=== PATIENT | male | born 1960 | race Caucasian/White ===

== ENCOUNTER → 2017-12-10 | Outpatient (CLI) | payer MEDICARE, OTHER | LOC: COL.RAD 11:33 | DX: M86.171 Other acute osteomyelitis, right ankle and foot (principal); L97.519 Non-pressure chronic ulcer of other part of right foot with unspecified severity | CPT/HCPCS: A9585 ==

== ENCOUNTER → 2019-08-10 | Outpatient (CLI) | payer MEDICARE, OTHER | LOC: MHCPAIN 07:47 | DX: M47.817 Spondylosis without myelopathy or radiculopathy, lumbosacral region (principal); M54.5 Low back pain; M53.3 Sacrococcygeal disorders, not elsewhere classified; G89.29 Other chronic pain; E66.8 Other obesity; E11.9 Type 2 diabetes mellitus without complications | CPT/HCPCS: G0463; J1040 ==

== ENCOUNTER → 2019-10-21 | Outpatient (CLI) | payer MEDICARE, OTHER | LOC: ZCOL.LAB 21:03 | DX: E11.621 Type 2 diabetes mellitus with foot ulcer (principal); L97.509 Non-pressure chronic ulcer of other part of unspecified foot with unspecified severity; T14.8XXA Other injury of unspecified body region, initial encounter ==

== ENCOUNTER → 2019-10-24 | Outpatient (CLI) | payer MEDICARE, OTHER ==
[2019-10-24 10:26] LABS: BASO % 0.5 % (0.0-2.0); EOS # 0.1 (0.0-0.7); EOS % 1.8 % (0-4.0); GRAN # 3.5 (1.4-6.5); GRAN % 56.3 % (42.2-75.2); HEMATOCRIT 38.4 % (42.0-52.0); HEMOGLOBIN 12.6 g/dl (13.5-18.0); LYMPH % 31.1 % (20.0-51.0); MEAN CELL VOLUME 90 fl (80.0-100.0); MEAN CORPUSCULAR HEMOGLOBIN 29 pg (27.0-31.0); MEAN CORPUSCULAR HGB CONC 33 g/dl (33.0-37.0); MEAN PLATELET VOLUME 9.5 fl (7.4-10.4); MONO # 0.6 (0.1-0.6); PLATELET COUNT 226 K/mm3 (130-400); RED BLOOD COUNT 4.28 M/mm3 (4.20-5.60); REDCELL DISTRIBUTION WIDTH-CV 13.7 % (11.5-14.5)
[2019-10-24 10:36] LABS: ALANINE AMINOTRANSFERASE 18 U/L (4-49); ALBUMIN 4.4 gm/dL (3.5-5.0); ALKALINE PHOSPHATASE 137 U/L (50-136); ANION GAP 10 mmol/L (7-16); AST,SGOT 25 U/L (15-37); BILIRUBIN,TOTAL 0.6 mg/dL (0.0-1.0); BLOOD UREA NITROGEN 14 mg/dL (9-20); CARBON DIOXIDE 30 mmol/L (22-30); CHLORIDE 102 mmol/L (98-107); CREATININE, serum 0.86 (0.66-1.25); GLUCOSE 93 mg/dL (74-106); POTASSIUM 4.3 mmol/L (3.4-5.0); SODIUM 141 mmol/L (137-145); TOTAL PROTEIN 7.8 gm/dL (6.4-8.2)
[2019-10-24 10:37] LABS: C-REACTIVE PROTEIN < 0.5 mg/dL (0.0-0.9)
[2019-10-24 10:56] LABS: ERYTHROCYTE SEDIMENTATION RATE 16 mm/hr (0-30)
== END ==
LOC: COL.LAB 09:42
PROVIDERS: Nurse Practitioner
DX: E11.621 Type 2 diabetes mellitus with foot ulcer (principal); T14.8XXA Other injury of unspecified body region, initial encounter; L97.509 Non-pressure chronic ulcer of other part of unspecified foot with unspecified severity; I87.2 Venous insufficiency (chronic) (peripheral)

== ENCOUNTER → 2020-02-20 | Outpatient (CLI) | payer MEDICARE, OTHER | LOC: ZCOL.LAB 16:03 | DX: E13.621 Other specified diabetes mellitus with foot ulcer (principal); L97.509 Non-pressure chronic ulcer of other part of unspecified foot with unspecified severity ==

== ENCOUNTER 2022-05-09 17:01 | Inpatient (IN) | payer MEDICARE, OTHER ==
[~2022-05-09] VITALS: Ht 188 cm; Wt 136.1 kg
[~2022-05-09 17:01] MED LIST: AQUAPHOR OINTM396 GM TP; B-121000 MCG PO; CALCIUM 600MG+D1 TAB PO; CIALIS5 MG PO; COLACE 100100 MG/CAP PO; CYMBALTA 60MG60 MG PO; FERROUS SU325 MG/TAB PO; FOLIC ACID 11 MG/TA1 PO; GLUCOPHAGE1000 MG PO; LASIX 40MG TABL40 MG PO; MASON NATURAL2000 IU PO; MELATIN 3 MG-11 TAB PO; MICARDIS20 MG PO; MINIPRESS 5M5 MG/CAP PO; MIRAPEX 0.0.125 MG/T PO; MOUNJARO5 MG/0.5 M SQ; MULTAQ400 MG PO; MULTI VITAMINS1 TAB PO; NEURONTIN600 MG/TAB PO; PRADAXA 150MG150 MG PO; SILVADENE CREAM1 TU TP; TESTOSTERONE INJ; VITAMIN C500 MG PO; WELLBUTRIN SR150 M1 PO; ZOLOFT 50MG50 MG PO; ZYLOPRIM 100MG100 MG PO
[2022-05-12 08:13] VITALS: BP 118/82; PULSE 72; TEMP 97.6
--- NOTE | 2022-05-12 08:13 | NUR ---
Pt to room 349 on surgical floor. Pt arrived for sotalol initiation. Shift assessment completed. VSS. Pt is A&Ox4. Telemetry now on; afib. LCTA on RA. BSx4. INT in R forearm patent, no edema or redness. Pt has x2 ulcers to the RLE and x1 blister to the LLE greater toe. Wounds open to air. No further request at this time. Call light within reach.
[2022-05-12] MEDS ORDERED: PHARMASSURE ZIN50 MG PO (09:45)
[2022-05-12 11:19] LABS: BASO % 0.4 % (0.0-2.0); EOS # 0.2 K/mm3 (0.0-0.7); EOS % 2.1 % (0.0-4.0); GRAN # 4.3 K/mm3 (1.4-6.5); GRAN % 55.4 % (42.2-75.2); HEMATOCRIT 43.2 % (42.0-52.0); HEMOGLOBIN 15.2 g/dl (13.5-18.0); LYMPH # 2.5 K/mm3 (1.2-3.4); LYMPH % 33.2 % (20.0-51.0); MEAN CELL VOLUME 93 fl (80.0-100.0); MEAN CORPUSCULAR HEMOGLOBIN 33 pg (27-31); MEAN CORPUSCULAR HGB CONC 35 g/dl (33.0-37.0); MEAN PLATELET VOLUME 9.6 fl (7.4-10.4); MONO # 0.7 K/mm3 (0.1-0.6); MONO % 8.6 % (1.7-9.3); PLATELET COUNT 194 K/mm3 (130-400); RED BLOOD COUNT 4.67 M/mm3 (4.20-5.60); REDCELL DISTRIBUTION WIDTH-CV 12.9 % (11.5-14.5)
[2022-05-12 11:21] LABS: INR 1.1 (0.8-3.0); PROTHROMBIN TIME 12.2 SECONDS (9.7-12.8)
[2022-05-12 11:30] LABS: ALBUMIN 3.9 gm/dL (3.4-4.8); BILIRUBIN,TOTAL 0.4 mg/dL (0.2-1.2); CALCIUM 8.9 mg/dL (8.4-10.2); CREATININE, serum 0.77 mg/dL (0.72-1.25); MAGNESIUM 1.9 mg/dL (1.6-2.6); POTASSIUM 4.3 mmol/L (3.5-4.5); TOTAL PROTEIN 6.6 gm/dL (6.2-8.1)
[2022-05-12 12:14] VITALS: BP 124/73; PULSE 101; TEMP 97.6
--- NOTE | 2022-05-12 16:18 | NUR ---
This nurse called wound care consult. Dr. Kapadia unable to conduct consult this week.
[2022-05-12 16:42] VITALS: BP 100/61; PULSE 74; TEMP 98.4
[2022-05-12 19:40] VITALS: BP 138/83; PULSE 84; TEMP 98.4
--- NOTE | 2022-05-12 21:25 | NUR ---
Patient A/Ox4, head to toe assessment done, see shift assessment, reports pain to BLE PS of 6/10, scheduled gabapentin given at this time, denies the need for other pain meds, noted to 2 ulcers to right LE and 1 blister to LLE open to air, denies chest pain, denies further needs, call light and personal items within reach, will continue to monitor.
[2022-05-12 23:27] VITALS: BP 105/66; PULSE 77; TEMP 97.8
[2022-05-13 04:06] VITALS: BP 101/68; PULSE 85; TEMP 97.4
--- NOTE | 2022-05-13 06:25 | NUR ---
Patient had an uneventful night, denies further needs, will report off to dayshift nurse.
[2022-05-13 06:54] LABS: BASO % 0.4 % (0.0-2.0); EOS # 0.2 K/mm3 (0.0-0.7); EOS % 2.2 % (0.0-4.0); GRAN # 3.9 K/mm3 (1.4-6.5); GRAN % 52.3 % (42.2-75.2); HEMATOCRIT 43.9 % (42.0-52.0); LYMPH # 2.7 K/mm3 (1.2-3.4); LYMPH % 36.2 % (20.0-51.0); MEAN CELL VOLUME 92 fl (80.0-100.0); MEAN CORPUSCULAR HEMOGLOBIN 32 pg (27-31); MEAN CORPUSCULAR HGB CONC 34 g/dl (33.0-37.0); MEAN PLATELET VOLUME 9.9 fl (7.4-10.4); MONO # 0.6 K/mm3 (0.1-0.6); MONO % 8.6 % (1.7-9.3); PLATELET COUNT 199 K/mm3 (130-400); RED BLOOD COUNT 4.75 M/mm3 (4.20-5.60); REDCELL DISTRIBUTION WIDTH-CV 12.7 % (11.5-14.5)
[2022-05-13 07:09] LABS: ALBUMIN 3.5 gm/dL (3.4-4.8); BILIRUBIN,TOTAL 0.6 mg/dL (0.2-1.2); CALCIUM 8.8 mg/dL (8.4-10.2); CREATININE, serum 0.77 mg/dL (0.72-1.25); MAGNESIUM 1.9 mg/dL (1.6-2.6); POTASSIUM 4.1 mmol/L (3.5-4.5); TOTAL PROTEIN 6.1 gm/dL (6.2-8.1)
[2022-05-13 08:45] VITALS: BP 111/72; PULSE 81; TEMP 97.9
--- NOTE | 2022-05-13 09:10 | NUR ---
Optometry Teacher met with patient to discuss discharge planning. Patient lives in [place], [place] with his Sonia (ph#[phone]). Patient goes to [facility] for primary care and medications. Patient uses a CPAP at home and is independent with ADLS. Patient does not have DPOA-HC at this time, but was interested in obtaining the form. SW provided form along with education about Advance Directives. Patient plans to return home at time of discharge. Discharge Plan: Home
--- NOTE | 2022-05-13 09:32 | NUR ---
Initial visit; Patient thanked Named Account Executive for stopping in and offering Spiritual Care. Patient states he is doing well and will be discharged soon.
--- NOTE | 2022-05-13 10:08 | NUR ---
PLAN ON CARDIOVERSION TOMMORROW AROUND 1100. KYLIE WITH CARDIOLOGY IN TO SEE PT THIS AM. MADE APPT WITH DR. RHODES OUT PATIENT. PLAN ON DISCHAGE AFTER CARDIOVERSION.
[2022-05-13 12:00] VITALS: BP 107/70; PULSE 84; TEMP 98.4
[2022-05-13 16:07] VITALS: BP 116/75; PULSE 80; TEMP 97.6
[2022-05-13 19:29] VITALS: BP 119/47; PULSE 87; TEMP 98.3
[2022-05-13 23:12] VITALS: BP 103/55; PULSE 76; TEMP 97.4
--- NOTE | 2022-05-13 23:54 | NUR ---
SHIFT REPORT FROM JUDY HAMPTON. PATIENT IN CHAIR ON ROOM ENTRY. ALERT AND ORIENTED. HS MEDS PER EMAR. DENYING PAIN CONTROL NEEDS. TOOK SHOWER INDEPENDENTLY. WOUNDS TO BLE ROSIO. AGREEABLE TO NPO AT MIDNIGHT ORDERS. DENIES ADDITIONAL NEEDS. CALL LIGHT IN REACH.
[2022-05-14] VITALS (8 sets, daily range): BP systolic 91–133; BP diastolic 60–85; PULSE 68–86; TEMP 97–97.8
[2022-05-14 06:42] LABS: BASO % 0.5 % (0.0-2.0); EOS # 0.1 K/mm3 (0.0-0.7); EOS % 1.8 % (0.0-4.0); GRAN % 51.2 % (42.2-75.2); HEMATOCRIT 45.1 % (42.0-52.0); HEMOGLOBIN 15.5 g/dl (13.5-18.0); LYMPH # 2.9 K/mm3 (1.2-3.4); LYMPH % 37.5 % (20.0-51.0); MEAN CELL VOLUME 94 fl (80.0-100.0); MEAN CORPUSCULAR HEMOGLOBIN 32 pg (27-31); MEAN CORPUSCULAR HGB CONC 34 g/dl (33.0-37.0); MEAN PLATELET VOLUME 9.6 fl (7.4-10.4); MONO # 0.7 K/mm3 (0.1-0.6); MONO % 8.7 % (1.7-9.3); PLATELET COUNT 201 K/mm3 (130-400); RED BLOOD COUNT 4.81 M/mm3 (4.20-5.60); REDCELL DISTRIBUTION WIDTH-CV 12.6 % (11.5-14.5)
[2022-05-14 07:00] LABS: ALBUMIN 3.6 gm/dL (3.4-4.8); BILIRUBIN,TOTAL 0.6 mg/dL (0.2-1.2); CALCIUM 8.9 mg/dL (8.4-10.2); CREATININE, serum 0.82 mg/dL (0.72-1.25); MAGNESIUM 1.9 mg/dL (1.6-2.6); POTASSIUM 4.3 mmol/L (3.5-4.5); TOTAL PROTEIN 6.3 gm/dL (6.2-8.1)
--- NOTE | 2022-05-14 09:36 | NUR ---
Patient sitting up in chair. Have been in contact with cardiology Genoveva Farley spoke to and orders obtained. Ivf bolus infusing. Po pradaxa given per orders other medications held at this time. Will monitor Blood pressure.
--- NOTE | 2022-05-14 10:51 | NUR ---
Updated cardiology, BP stablized after bolus of fluids. No new orders. Continue to hold medications until after cardioversion.
--- NOTE | 2022-05-14 11:39 | NUR ---
Patient to laboratory animal facility supervisor at this time. Will await his return
--- NOTE | 2022-05-14 13:41 | NUR ---
Patient has done well post cardioversion. Lunch ordered. I spoke with Genoveva with cardiology and morning medications given. Plans for discharge home today, will await orders
[2022-05-14] MEDS ORDERED: BETAPACE 80MG80 MG PO (14:46)
--- NOTE | 2022-05-14 15:52 | NUR ---
Discharge orders reviewed with patient. He tolerated lunch. Vitals stable. Patient understanding of medication list changes. He is aware minipress change he is aware to take a 1mg capsule & 2mg capsule to equal 3mg. His new dose of sotolol sent to pharmacy. Patient was advised that he can't drive home after procedure, but he reports Cardiology told him he could. He denies questions or concerns. INt dc.
== END 2022-05-14 16:08 | disposition home or self-care (01) | DRG 309 ==
LOC: SURG 05-12 08:38 → MEDICAL 05-12 17:00 → SURG 05-14 16:08
PROVIDERS: ADMIT Internal Medicine Cardiovascular Disease
PROC: 5A2204Z Restoration of Cardiac Rhythm, Single (ICD-10-PCS; principal; 2022-05-14)
DX: I48.0 Paroxysmal atrial fibrillation (principal); L97.819 Non-pressure chronic ulcer of other part of right lower leg with unspecified severity; I87.2 Venous insufficiency (chronic) (peripheral); I10 Essential (primary) hypertension; L97.529 Non-pressure chronic ulcer of other part of left foot with unspecified severity; E11.621 Type 2 diabetes mellitus with foot ulcer; K76.0 Fatty (change of) liver, not elsewhere classified; K21.9 Gastro-esophageal reflux disease without esophagitis; F41.9 Anxiety disorder, unspecified; F32.A Depression, unspecified; G25.81 Restless legs syndrome; F51.5 Nightmare disorder; E11.40 Type 2 diabetes mellitus with diabetic neuropathy, unspecified; F43.10 Post-traumatic stress disorder, unspecified; D64.9 Anemia, unspecified; M19.90 Unspecified osteoarthritis, unspecified site; E78.5 Hyperlipidemia, unspecified; Z79.84 Long term (current) use of oral hypoglycemic drugs; Z87.891 Personal history of nicotine dependence; Z23 Encounter for immunization
CPT/HCPCS: A9270; J2704